=== PATIENT | female | born 1955 | race Caucasian/White ===

== ENCOUNTER 2018-09-01 06:26 | Emergency (ER) | payer OTHER ==
[~2018-09-01] VITALS: Ht 149.9 cm; Wt 53.1 kg
[2018-09-01] MEDS ORDERED: SYNTHROID100 MC1 PO (06:36)
[2018-09-01] MEDS ORDERED: RESTORIL15 MG PO (06:36)
[2018-09-01 06:54] LABS: ABSOLUTE LYMPHOCYTES 1.2 thou/uL (0.8-5.3); ABSOLUTE MONOCYTES 0.2 thou/uL (0.0-1.2); ABSOLUTE NEUTROPHILS 3.2 thou/uL (1.6-8.1); HEMATOCRIT 40.8 % (37.0-47.0); HEMOGLOBIN 13.8 gm/dL (12.0-15.0); LYMPHOCYTES 24.7 %; MCH 31.6 pg (26.0-34.0); MCHC 33.8 g/dL (28.0-37.0); MCV 93.4 fL (80.0-100.0); MONOCYTES 4.7 %; NUCLEATED RBCS 0 /100WBC; PLATELET COUNT* 187 thou/uL (150-400); POLYS 68.6 %; RBC 4.37 mil/uL (4.20-5.00); RDW-CV 12.5 % (10.5-14.5); WBC 4.7 thou/uL (4.0-11.0)
[2018-09-01 07:02] LABS: APTT 25.8 Seconds (25.0-31.3); INR 0.9; PROTIME 9.6 Seconds (9.20-11.50)
[2018-09-01 07:10] LABS: ALBUMIN 3.8 g/dL (3.4-5.0); CALCIUM 8.5 mg/dL (8.5-10.1); CREATININE 0.8 mg/dL (0.6-1.3); POTASSIUM 3.8 mmol/L (3.5-5.1); TOTAL BILIRUBIN 0.3 mg/dL (<0.1-1.0); TOTAL PROTEIN 7.2 g/dL (6.4-8.2)
[2018-09-01 08:08] LABS: BE -3.9 mmol/L (-2 to +3); PCO2 43.4 mmHg (35.0-45.0); PO2 77.2 mmHg (75.0-100.0); pH 7.324 (7.340-7.450)
[2018-09-01 08:24] LABS: ALCOHOL 25 mg/dL (<10); SALICYLATE < 2.8 mg/dL (2.8-20.0)
[2018-09-01 08:31] LABS: ACETAMINOPHEN < 2 ug/mL (10-30)
[2018-09-01 09:19] LABS: URINE BILIRUBIN NEGATIVE (Negative); URINE BLOOD 1+ (Negative); URINE CLARITY CLEAR; URINE COLOR YELLOW; URINE GLUCOSE-RANDOM NEGATIVE (Negative); URINE KETONES NEGATIVE (Negative); URINE LEUKOCYTES-REFLEX 1+ (Negative); URINE NITRITE-REFLEX NEGATIVE (Negative); URINE PROTEIN NEGATIVE (Negative); URINE UROBILINOGEN 0.2 E.U./dl (0.2-1.0)
[2018-09-01 09:26] LABS: AMP/METHAMP Negative (Negative); BARBITURATES Negative (Negative); BENZODIAZEPINES POSITIVE (Negative); COCAINE Negative (Negative); METHADONE Negative (Negative); OPIATES Negative (Negative); PCP Negative (Negative); THC Negative (Negative)
[2018-09-01 09:27] LABS: BACTERIA-REFLEX 1-9 Few /HPF (None Seen); CASTS None Seen /LPF (None Seen); CRYSTALS None Seen /LPF (None Seen); MUCUS 0-3 Light strn/LPF (None Seen); SQUAMOUS 0-3 Few /LPF (0-3); URINE RBC 3-10 Few /HPF (0-2); URINE WBC-REFLEX 0-5 Rare /HPF (0-5)
--- NOTE | 2018-09-01 17:08 | EKG ---
[place] [address] ELECTROCARDIOGRAM REPORT Name: PRUDENCIO SALGADO Room: [facility]#: [id number] Admission: 09/01/18 Attend Phys: Discharge: Date of : 53 Report #: [id number] THIS REPORT FOR: //name// [facility] ED Test Date: 2018-09-01 Test Time: 06:36:42 Pat Name: PRUDENCIO SALGADO Department: Room: Gender: F Invoice Checker: SOILA : 1955 Requested By: Gerald Ruff Order Number: [id number] MD: Kiko Zapien Measurements Intervals [place] Rate: 72 P: 66 KS: 125 QRS: 50 QRSD: 86 T: 49 QT: 428 QTc: 469 Interpretive Statements Sinus rhythm with short [place] interval Possible left atrial enlargement Left ventricular hypertrophy, by voltage No previous ECG available for comparison Electronically Signed On 09-01-2018 17:08:35 CDT by Kiko Zapien [email or web address] <ELECTRONICALLY SIGNED> By: Kiko Zapien MD, [facility] 09/01/18 1708 D: 03/635 5 Kiko Zapien MD, FACC /EPI
[2018-09-01 20:03] VITALS: BP 121/70
== END 2018-09-01 20:04 ==
LOC: M.ERS 06:26 → EDBD 06:26 → M.ERS 06:26
PROVIDERS: Emergency Medicine; Family Medicine
DX: R45.851 Suicidal ideations (principal); F32.9 Major depressive disorder, single episode, unspecified; I10 Essential (primary) hypertension; Z88.5 Allergy status to narcotic agent; Z88.2 Allergy status to sulfonamides; Z79.899 Other long term (current) drug therapy